=== PATIENT | male | born 1970 | race African-American/Black ===

== ENCOUNTER 2017-03-20 18:52 | Emergency (ER) | payer OTHER ==
[~2017-03-20] VITALS: Ht 172.7 cm; Wt 88.6 kg
[2017-03-20 18:43] VITALS: TEMP 37.1; Ht 172.7 cm; Wt 88.6 kg
[2017-03-20] MEDS ORDERED: KETOROLAC TROMETHAMINE 30 MG/ML VIAL IV STA (19:08)
[2017-03-20] MEDS ORDERED: ACETAMINOPHEN 500 MG TAB PO STA (19:08)
[2017-03-20] MEDS ORDERED: LORAZEPAM 2 MG/ML 1 ML VIAL IV STA (19:08)
[2017-03-20] MEDS ORDERED: CYCLOBENZAPRINE HCL 5 MG TAB PO STA (19:08)
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
[2017-03-20] MEDS ORDERED: CYCLOBENZAPRINE HCL 10 MG TAB ONE (19:32)
[2017-03-20] MEDS ORDERED: CICL160A INH (19:36)
[2017-03-20] MEDS ORDERED: VNTHFA/IN INH (19:37)
--- NOTE | 2017-03-20 20:10 | DIAGNOSTIC IMAGING REPORT ---
LUMBAR SPINE 5 VIEWS CLINICAL HISTORY: Low back pain. No reported history of trauma. FINDINGS: 5 views of the lumbar spine are obtained. No prior studies are available for comparison at the time of dictation. The skeletal structures are well mineralized. There is no radiographic evidence of fracture or malalignment. Vertebral body height and alignment are maintained. Small anterior osteophytes are seen throughout. The transverse and spinous processes are intact. There is incomplete bony fusion of the right transverse process of L1. There is no evidence of spondylolysis. There is moderate disc space narrowing at T12-L1 with mild associated endplate sclerosis. There is minimal degenerative disc space narrowing at L5-S1. The remaining intervertebral disc spaces are well-maintained. The visualized bony pelvis appears intact. There is a nonobstructed abdominal bowel gas pattern. IMPRESSION: There is no acute bony abnormality seen involving the lumbosacral spine. Electronically signed by: Quinten Hanson M.D. 03/20/2017 8:09 PM Dictated Date/Time: 03/20/2017 8:07 PM
[2017-03-20] MEDS ORDERED: CYCL10TA6 PO (20:19)
[2017-03-20 21:08] VITALS: BP 117/88; PULSE 95; O2SAT 98
== END 2017-03-20 21:10 | disposition home or self-care (01) ==
LOC: C.EDA 18:59
DX: M54.5 Low back pain (principal); F17.210 Nicotine dependence, cigarettes, uncomplicated; Z87.828 Personal history of other (healed) physical injury and trauma